=== PATIENT | male | born 1985 | race Two or more races ===

== ENCOUNTER 2022-12-23 12:49 | Emergency (ER) | payer MEDICAID ==
[~2022-12-23] VITALS: Ht 180.3 cm; Wt 124.3 kg
[2022-12-23 13:08] VITALS: BP 154/88
[2022-12-23] MEDS ORDERED: IBUPROFEN 600 MG TAB PO ONE (13:30)
[2022-12-23] MEDS ORDERED: ACETAMINOPHEN 325 MG TAB PO ONE (13:30)
[2022-12-23] MEDS ORDERED: IBUP800T26 PO (14:44)
== END 2022-12-23 16:04 | disposition left against medical advice (07) ==
LOC: ER 12:49
DX: L02.31 Cutaneous abscess of buttock (principal); Z79.1 Long term (current) use of non-steroidal anti-inflammatories (NSAID)
CPT/HCPCS: 10060